=== PATIENT | female | born 1990 | race Caucasian/White ===

== ENCOUNTER 2023-02-02 12:52 | Outpatient (REF) | payer OTHER, SELFPAY ==
[2023-02-04 17:43] LABS: TS Negative Control Passed; TS Panel A 0; TS Panel B 1; TS Positive Control Passed; TSpotTB Negative (Negative)
== END 2023-02-02 12:53 | disposition home or self-care (01) ==
LOC: HO.CHCLDS 12:52
PROVIDERS: Visit Provider Internal Medicine
DX: Z11.1 Encounter for screening for respiratory tuberculosis (principal)
CPT/HCPCS: 36415; 86481

== ENCOUNTER 2024-12-20 10:10 | Outpatient (REF) | payer SELFPAY ==
--- OUTSIDE RECORDS SUMMARY | 2024-12-20 09:00 | XMS_ITS | Encounter Summary ---
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 Name Role Phone Michelle Burgess CNP Primary Care Provider [phone] Reason for Referral * Consultation (Routine) - Authorized Specialty Diagnoses / Procedures Referred By Sania sprague Referred To Contact Behavioral Health Diagnoses Anxiety Michelle Burgess CNP [address] [place] [address] Phone: tel: fax: Referral ID Status Reason Start Date Expiration Date Visits Requested Visits Authorized [id number] Authorized Specialty Services Required 12/20/2024 12/20/2025 1 1 Encounter Details Date Type Department Care Team (Late st Contact Info) Description 12/20/2024 9:00 AM EDT Office Visit [facility] [address] [place] [address] Michelle Burgess CNP [address] [place] [address] Encounter for physical examination (Primary Dx); Endometriosis; Stress incontinence of urine; Anxiety; Constipation, unspecified constipation type; Mild intermittent asthma, unspecified whether complicated; Encounter for immunization; Chronic fatigue Social History Tobacco Use Types Packs/Day Years Used Date Smoking Tobacco: Never Smokeless Tobacco: Never Depression Answer Date Recorded Patient Health Questionnaire-9 Score 6 12/20/2024 Patient Health Questionnaire-9 Score 6 12/20/2024 Last PHQ-9: Questionnaire Data Not on file 0 12/20/2024 Housing Stability Answer Date Recorded What is your housing situation today? I have iggy lee 12/13/[address] you li ve. Do you have problems with any of the following? None of the above 12/13/2024 Food Insecurity Answer Date Recorded Within the past 12 months, y ou worried that your food would run out before you got money to buy more: Sometimes True 2024 Within the past 12 months,th e food you bought just didn't last and you didn't have enough money to get more: Sometimes True 12/20/2024 Transportation Answer Date Recorded In the past 12 months, has l ack of transportation kept you from medical appts, meetings, work or from getting things needed for daily living? No 12/13/2024 Utilities Answer Date Recorded In the past 12 months, has t he electric, gas, oil or water company threatened to shut off services in your home? Yes 12/13/2024 Depression Answer Date Recorded Patient Health Questionnaire-2 Score 2 12/20/2024 Internet Access Answer Date Recorded Internet Access Q1 Yes 12/13/2024 Internet Access Q2 Not on file 12/13/2024 Comments No Intention Date Recorded No desire to become (finding) 0 12/20/2024 Sex and Gender Information Value Date Recorded Sex Assigned at Female 01/20/2022 10:31 AM EDT Legal Sex Female 10:31 AM EDT Gender Identity Female 01/20/2022 10:31 AM EDT Sexual Orientation Straight 01/20/2022 10 :31 AM EDT documented as of this encounter Last Filed Vital Signs Vital Sign Reading Time Taken Comments Blood Pressure 102/68 12/20/2024 9:08 AM EDT Pulse 80 12/20/2024 9:08 AM EDT Temperature 36.7 C (98.1 F) 12/20/2024 9:08 AM EDT Respiratory Rate 14 12/20/2024 9:08 AM EDT Oxygen Saturation 98% 12/20/2024 9:08 AM EDT Inhaled Oxygen Concentration - - Weight 73.9 kg (163 lb) 12/20/2024 9:08 AM EDT Height 160 cm (5' 3 ) 12/20/2024 9:08 AM EDT Body Mass Index 28.87 12/20/2024 9:08 AM EDT documented in this encounter Functional Status * Over the past 2 weeks, how often have you been bothered by any of the following problems? Question Answer Date of Assessment Author Patient Health Questionnaire -2 Score 2 12/20/2024 10:51 AM EDT Sa micah Perez [place] * Little interest or pleasure in doing things Answer Date of Assessment Author Several days 12/20/2024 10:51 AM EDT Julee Mcclure MA * Feeling down, depressed, or hopeless Answer Date of Assessment Author Several days 12/20/2024 10:51 AM EDT Julee Mcclure MA * Trouble falling or staying asleep, or sleeping too much Answer Date of Assessment Author Several days 12/20/2024 10:51 AM EDT Julee Mcclure MA * Feeling tired or having little energy Answer Date of Assessment Author Several days 12/20/2024 10:51 AM EDT Julee Mcclure MA * Poor appetite or overeating Answer Date of Assessment Author More than half the days 12/20/2024 10:51 AM EDT Julee Perez MA * Feeling bad about yourself - or that you are a failure or have let yourself or your family down Answer Date of Assessment Author Not at all 12/20/2024 10:51 AM EDT Julee Mcclure MA * Trouble concentrating on things, such as reading the newspaper or watching television Answer Date of Assessment Author Not at all 12/20/2024 10:51 AM EDT Julee Mcclure MA * Moving or speaking so slowly that other people could have noticed? Or the opposite - being so fidgety or restless that you have been moving around a lot more than usual. Answer Date of Assessment Author Not at all 12/20/2024 10:51 AM JOSIAHT Julee Mcclure MA * Thoughts that you would be better off or hurting yourself in some way Answer Date of Assessment Author Not at all 12/20/2024 10:51 AM JOSIAHT Julee Mcclure MA * Patient Health Questionnaire-9 Score Answer Date of Assessment Author 6 12/20/2024 10:51 AM EDT Julee Mcclure MA * How difficult have these problems made it for you to do your work, take care of things at home, or get along with other people? Answer Date of Assessment Author Somewhat difficult 12/20/2024 10:51 AM EDT Julee Hurst MA * Over the last 2 weeks, how often have you been bothered by any of the following problems? Question Answer Date of Assessment Author Feeling nervous, anxious, or on edge 1 12/20/2024 10:51 AM EDT Sa micah Perez MA Not being able to stop or control worrying 3 12/20/2024 10:51 AM EDT Sa micah Perez MA Worrying too much about different things 3 12/20/2024 10:51 AM EDT Sa micah Perez MA Trouble relaxing 3 12/20/2024 10:51 AM EDT Julee Perez MA Being so restless that it is hard to sit still 3 12/20/2024 10:51 AM EDT Sa micah Perez MA Becoming easily annoyed or irritable 3 12/20/2024 10:51 AM EDT Sa micah Perez MA Feeling afraid as if somethi ng awful might happen 3 12/20/2024 10:51 AM JOSIAHT Sa micah Perez MA ECHO-7 Total Score 19 12/20/2024 10:51 AM EDT Julee Perez MA documented as of this encounter Progress Notes * Michelle Burgess CNP - 12/20/2024 9:00 AM EDT Subjective: Paula Jorgensen is a 34 y.o. female w/ PMH endometriosis, menorrhagia, and tubo- ovarian abscess who is now s/p -[facility] who presents to the office for a transfer patient visit. Previous PCP MD Isabella. Interim history: ED eval 10/19/24 at [facility] for progressively worsening left flank pain. CT abd/pelvis demonstrated a 2mm stone in the proximal left ureter with mild left pelviectasis but no overt hydronephrosis. Multiple non-obstructing bilateral renal calculi. She was determined not to be septic or have a UTI. Offered admission to assist with pain control, but per hospital documentation, she declined admission. She was discharged with short course of Bylas 5-325mg Q6H Prn and flomax. Mar 2023: Robotic-assisted total lap hysterectomy, Bilat salpingo-oophorectomy, extensive lysis of adhesions, cystoscopy with Dr. Cornejo [address] , and primary repair of incidental anterior rectal defect, omental flap with Dr. Radha Loaiza, for Stage IV endometriosis. She uses transdermal estradiol patches. KYLER 12/02/24 reported New onset urinary incontinence, occurring with laughing, sneezing, or sudden movements; never experienced prior to hysterectomy. Feels pelvic area is weak, with sensation of incomplete bladder emptying; requires prolonged sitting to fully urinate, frequent urination in small amounts. No pelvic floor physical therapy after hysterectomy; Pt reports she has Pelvic PT appointment today. Current concerns: Daily anxiety for 2 years, described as overwhelming, with symptoms including shaking hands, lips, and body, difficulty talking, tightness in feet and hands, and intrusive thoughts; episodes described as panic attacks, especially when anxious. History of taking multiple pain medications (tramadol, Percocet) and anxiety gummies prior to surgery; currently uses gummies for anxiety but reports decreased effectiveness; no current daily anxiety medication prior to visit. - Feelings of grief and depression after surgery, especially during two months at home; currently experiences these feelings occasionally but is able to overcome them. Persistent fatigue and weakness since major pelvic surgery for endometriosis approximately 2 years ago; reports feeling desperate and unable to recover energy Decreased libido and sexual desire since surgery; fear and anxiety with intercourse due to pain andtrauma after surgery; uses lubricant as needed; reports pain and emotional distress during pelvic exams and intercourse, with shaking and tears; desire is more affected by fear than physical pain -History of COVID infection, most recently 3 weeks ago; reports persistent changes in breathing andshortness of breath since COVID, worsened with illness and exertion; uses Vicks to help breathing; unable to climb stairs easily; no current inhaler use Problem List[1] Surgical History[2] Family History[3] Social History Living situation: lives with , feels safe in relationship Employment/Education: [employer] Diet/exercise: nothing for exercise, reports inconsistent diet, often skips breakfast, eats most ofher calories at night. Substance use: denies Sexual activity: monogamous AMAB partner Contraception: [facility] Mental health: No data recorded No data recorded Patient's last menstrual period was 03/14/2023 (exact date). Allergies[4] Review of Systems see hpi Vitals: 12/20/24 0908 BP: 102/68 BP Location: Left arm Patient Position: Sitting BP Cuff Size: Adult Pulse: 80 Resp: 14 Temp: 98.1 ??F (36.7 ??C) TempSrc: Oral SpO2: 98% Weight: 163 lb (73.9 kg) Height: 5' 3 (1.6 m) Physical Exam Constitutional: Appearance: Normal appearance. She is normal weight. Cardiovascular: Rate and Rhythm: Normal rate and regular rhythm. Pulses: Normal pulses. Heart sounds: Normal heart sounds. No murmur heard. No friction rub. No gallop. Pulmonary: Effort: Pulmonary effort is normal. No respiratory distress. Breath sounds: Normal breath sounds. No wheezing or rales. Neurological: General: No focal deficit present. Mental Status: She is alert and oriented to person, place, and time. Psychiatric: Mood and Affect: Mood normal. Behavior: Behavior normal. Thought Content: Thought content normal. Judgment: Judgment normal. Assessment & Plan Encounter for physical examination 34 y/o female with stable physical exam showing no acute abnormalities 1. Anticipatory guidance discussed. Specific topics reviewed: drugs, ETOH, and tobacco, importance of regular dental care, importance of regular exercise, importance of varied diet, minimize junk food, and sex; STD and prevention as appropriate. 2. Age appropriate screenings discussed Routine Cancer Screening Breast CA: not indicated based on age Cervical CA: Colon CA: not indicated based on age Lung CA: not indicated Pt agreed to flu and PCV20 imms today, declines covid Will request vision appt Orders: Lipid Panel, Standard TSH W/Reflex to FT4 Basic Metabolic Panel CBC auto differential Vitamin D, 25-Hydroxy, Total, Immunoassay; Future Multiple Vitamin (multivitamin) tablet; Take 1 tablet by mouth Once per day. Iron And Total Iron Binding Capacity; Future Ferritin; Future Endometriosis - Recommended follow-up with the surgeon who performed prior surgery for evaluation and possible repeat imaging, specifically ultrasound, to assess for residual endometriosis and guide future management. Advised to call the surgeon???s office and request a follow-up; offered to provide a new referral if needed. - Recommended ongoing pelvic floor physical therapy to address pelvic pain, muscle tightness, and sexual dysfunction symptoms. -future consideration for progestogens and combined estrogen-progestin contraceptives, which suppress residual endometriotic tissue and are effective for pain control, these are now first line Stress incontinence of urine - Recommended ongoing pelvic floor physical therapy to address pelvic pain, muscle tightness, and sexual dysfunction symptoms. Anxiety No safety concerns today - Recommended referral to a therapist for additional mental health support and counseling. - Prescribed sertraline for anxiety, starting at 25 mg daily (half tablet) for the first week, thenincreasing to 50 mg daily (full tablet) if tolerated and no side effects. Medication to be taken inthe morning; does not require food and should not cause drowsiness. - Prescribed hydroxyzine for acute anxiety or panic attacks, to be taken initially at bedtime to assess response. May be used up to three times daily as needed for severe anxiety episodes or panic attacks. Orders: Referral to Behavioral Health; Future sertraline (Zoloft) 50 MG tablet; Take 1 tablet (50 mg) by mouth Once per day. hydrOXYzine HCl (Atarax) 25 MG tablet; Take 1 tablet (25 mg) by mouth if needed in the morning, at noon, and at bedtime for itching. Constipation, unspecified constipation type -Refilled colace - Recommended incorporating a protein shake or yogurt with fiber in the morning to improve bowel regularity and help with constipation. -advised ample hydration Orders: docusate sodium (Colace) 100 MG capsule; Take 1 capsule (100 mg) by mouth if needed each day for constipation. Mild intermittent asthma, unspecified whether complicated -Pt has history of childhood asthma that has reappeared s/p recent covid infection -pulm exam normal today -will prescribe albuterol prn for sob, wheezing with activity -future consideration for PFTs based on response to bronchodilator. Orders: albuterol (Ventolin HFA) 108 (90 Base) MCG/ACT inhaler; Inhale 2 puffs every 6 (six) hours if needed for wheezing. Encounter for immunization Orders: PCV-20 VACCINE 6 wks + FLU VACCINE TRIVALENT (Fluarix) 6 mo + Chronic fatigue - Ordered routine laboratory work to assess for nutritional deficiencies and other causes of fatigue post-surgery; blood draw to be completed today, fasting recommended. - Prescribed a daily multivitamin to support overall nutritional status; advised to review supplement contents and add biotin if not included. Current Medications[5] Immunization History Administered Date(s) Administered DTaP 1990, 1990, 1990, 06/05/1993, 04/03/1994 HPV, Quadrivalent 05/04/2007, 05/04/2007, 04/13/2008 Hep B, Adolescent or Pediatric 11/01/1997, 10/22/1998, 12/20/1999 HiB, unspecified 1990, 1990, 08/23/1991, 06/05/1993 Hib (HbOC) 1990, 1990, 08/23/1991, 06/05/1993 IPV 1990, 1990, 06/05/1993, 04/03/1994 Influenza Injectable Quadrivalant Preservative Free IIV4 MDCK 01/13/2017 Influenza injectable quadrivalent IIV4 with preservative 12/11/2017 Influenza injectable quadrivalent preservative free 01/20/2019, 02/07/2020, 01/03/2021, 12/24/2021,01/09/2023 Influenza, High Dose Seasonal, Preservative Free 12/24/2016 Influenza, IIV3, injectable 04/13/2008 Influenza, seasonal, injectable, preservative free 12/20/2024 MMR 08/23/1991, 06/05/1993 Meningococcal ACWY, unspecified 05/04/2007, 05/05/2007 Pfizer Covid-19 Vaccine 12+ 08/14/2020, 09/04/2020 Pneumococcal Conjugate PCV 20 12/20/2024 Td (adult), unspecified 02/22/2002, 05/04/2007 Tdap 05/04/2007, 05/19/2016 Varicella 02/22/2002 Follow up in about 1 month (around 01/19/2025) for mental health f/u . [1] Patient Active Problem List Diagnosis Mood disorder (CMS/HCC) Primary insomnia Menorrhagia with irregular cycle TOA (tubo-ovarian abscess) Screening-pulmonary TB Endometriosis Hospital discharge follow-up Abdominal pain Alcoholism (CMS/HCC) Allergic rhinitis Asthma Cyst of ovary Deep dyspareunia in female Dysmenorrhea Essential tremor Genital herpes Herpes simplex virus (HSV) infection Hydronephrosis Iron deficiency anemia Calculus of kidney Nephrolithiasis Postoperative state Seasonal allergies Endometrioma Depressive disorder [2] Past Surgical History: Procedure Laterality Date TOTAL ABDOMINAL HYSTERECTOMY 03/2023 ÓSCAR, VENKATESH, Dr. Cornejo at [facility] [3] No family history on file. [4] No Known Allergies [5] Current Outpatient Medications Medication Sig Dispense Refill estradiol (Climara) 0.1 MG/24HR USE 1 PATCH TOPICALLY EVERY WEEK estradiol (Vivelle-DOT) 0.1 MG/24HR Apply 1 patch topically. albuterol (Ventolin HFA) 108 (90 Base) MCG/ACT inhaler Inhale 2 puffs every 6 (six) hours if neededfor wheezing. 18 g 11 docusate sodium (Colace) 100 MG capsule Take 1 capsule (100 mg) by mouth if needed each day for constipation. 30 capsule 2 hydrOXYzine HCl (Atarax) 25 MG tablet Take 1 tablet (25 mg) by mouth if needed in the morning, at noon, and at bedtime for itching. 90 tablet 0 Multiple Vitamin (multivitamin) tablet Take 1 tablet by mouth Once per day. 30 tablet 2 sertraline (Zoloft) 50 MG tablet Take 1 tablet (50 mg) by mouth Once per day. 30 tablet 0 No current facility-administered medications for this visit. documented in this encounter Miscellaneous Notes * Assessment & Plan Note - Michelle Burgess CNP - 12/20/2024 9:00 AM EDT Associated Problem(s): Endometriosis - Recommended follow-up with the surgeon who performed prior surgery for evaluation and possible repeat imaging, specifically ultrasound, to assess for residual endometriosis and guide future management. Advised to call the surgeon???s office and request a follow-up; offered to provide a new referral if needed. - Recommended ongoing pelvic floor physical therapy to address pelvic pain, muscle tightness, and sexual dysfunction symptoms. -future consideration for progestogens and combined estrogen-progestin contraceptives, which suppress residual endometriotic tissue and are effective for pain control, these are now first line * Assessment & Plan Note - Michelle Burgess CNP - 12/20/2024 9:00 AM EDT Associated Problem(s): Asthma -Pt has history of childhood asthma that has reappeared s/p recent covid infection -pulm exam normal today -will prescribe albuterol prn for sob, wheezing with activity -future consideration for PFTs based on response to bronchodilator. Orders: albuterol (Ventolin HFA) 108 (90 Base) MCG/ACT inhaler; Inhale 2 puffs every 6 (six) hours if needed for wheezing. documented in this encounter Plan of Treatment Upcoming Encounters Date Type Department Care Team (Late st Contact Info) Description 01/19/2025 2:30 PM EDT Office Visit [facility] [address] [place] [address] Michelle Burgess CNP [address] [place] [address] 03/01/2025 8:00 AM EST Office Visit [facility] [address], [place] [id number] Vania Ruiz [address], [place] [id number] Scheduled Orders Name Type Priority Associated Diagnoses Orde r Schedule Lipid Panel, Standard Lab Routine Encounter for physical examination Ordered: 12/20/2024 TSH W/Reflex to FT4 Lab Routine Encounter for physical examination Ordered: 12/20/2024 Basic Metabolic Panel Lab Routine Encounter for physical examination Ordered: 12/20/2024 CBC auto differential Lab Routine Encounter for physical examination Ordered: 12/20/2024 Vitamin D, 25-Hydroxy, Total, Immunoassay Lab Routine Encounter for physical examination Expected: 12/20/2024 (Approximate), Expires: 12/20/2025 Iron And Total Iron Binding Capacity Lab Routine Encounter for physical examination Expected: 12/20/2024, Expires: 12/20/2025 Ferritin Lab Routine Encounter for physical examination Expected: 12/20/2024, Expires: 12/20/2025 Scheduled Referrals Name Type Priority Associated Diagnoses Order Schedule Referral to Behavioral Health Outpatient Referral Routine Anxiety Expected: 12/20/2024 (Approximate), Expires: 06/19/2026 documented as of this encounter Visit Diagnoses Diagnosis Encounter for physical examination- Primary Endometriosis Endometriosis, site unspecified Stress incontinence of urine Anxiety Anxiety state, unspecified Constipation, unspecified constipation type Mild intermittent asthma, unspecified whether complicated Encounter for immunization Chronic fatigue Other malaise and fatigue documented in this encounter Additional Health Concerns Assessment Noted Time PHQ-9 Depression Total Score: 6 12/21/19 25 10:51 AM EDT documented as of this encounter Care Teams Machine Operator Replanter Relationship Specialty Start Date End Date Michelle Burgess CNP [address] [place] [address] PCP - General Family Medicine 12/20/24 documented as of this encounter
--- OUTSIDE RECORDS SUMMARY | 2024-12-20 11:15 | XMS_ITS | Clinical Summary ---
Author Organization [facility] Address [address] [place] [address] Phone Care Team Providers Care Human Development Professor Name Role Phone Jules Ko MD Primary Care Provider [phone] Allergies No known active allergies Medications estradioL (CLIMARA) 0.1 mg/[address] 1 patch on the skin 1 (one) time per week. 09/17/2024 Active Active Problems No known active problems Encounters Date Type Department Care Team Description 10/19/2024 12:15 PM EDT - 10/19/2024 5:39 PM EDT Emergency [facility] Emergency [address] [place] [address] Fabian Coleman MD Kidney stone (Primary Dx) Discharge Disposition: Home or Self Care from Last 3 Months Surgical History Surgery Date Site/Laterality Comments OTHER SURGICAL HISTORY 2019 PROCEDURE: HISTORICAL PELVISCOPY; COMMENT: Right ovarian torsion LITHOTRIPSY PROCEDURE: HISTORICAL LITHOTRIPSY Medical History Medical History Date Comments Kidney stones DX:Kidney stones Dyspareunia in female DX:Dyspare unia in female HSV infection DX:HSV infection Other seasonal allergic rhinitis DX:Other seasonal allergic rhinitis Social History Tobacco Use Types Packs/Day Years Used Date Smoking Tobacco: Unknown Tobacco Cessation:Counseling Given: Not Answered Comments Unknown Sex and Gender Information Value Date Recorded Sex Assigned at Not on file Legal Sex Female 7:02 AM EST Gender Identity Not on file Sexual Orientation Not on file Obstetrics History Last Filed Vital Signs Vital Sign Reading Time Taken Comments Blood Pressure 112/64 10/19/2024 5:38 PM EDT Pulse 76 10/19/2024 5:38 PM EDT Temperature 36.9 C (98.4 F) 10/19/2024 5:38 PM EDT Respiratory Rate 18 10/19/2024 5:38 PM EDT Oxygen Saturation 100% 10/19/2024 5:38 PM EDT Inhaled Oxygen Concentration - - Weight 69.4 kg (153 lb) 10/19/2024 12:45 PM EDT Height 160 cm (5' 3 ) 10/19/2024 12:45 PM EDT Body Mass Index 27.1 10/19/2024 12:45 PM EDT Plan of Treatment Health Maintenance Due Date Last Done Comments HPV Vaccines (3 - 3-dose series) 07/06/2008 04/13/2008, 05/04/2007 Pneumococcal Vaccine: Pediatrics (0 to 5 Years) and At-Risk Patients (6 to 49 Years) (1 of 2 - PCV) 2009 Cervical Cancer Screening: Pap Smear 2011 HIV Screening 04/21/2023 Hepatitis C Screening 04/21/2023 Social Influencers of Health Screening 04/21/2023 Depression Screening 03/23/2024 COVID-19 Vaccine ( season) 2024 05/25/2021, 09/04/2020, 08/14/2020 Influenza Vaccine (#1) 2024 , 01/09/2023, 12/24/2021, Additional history exists DTaP,Tdap,and Td Vaccines (10 - Td or Tdap) 05/19/2026 05/19/2016, 05/04/2007, 05/04/2007, Additional history exists RSV Immunization Adult Patients (1 - 1-dose 75+ series) 2065 HIB Vaccines Completed 06/05/1993, 04/1991, 1990, Additional history exists MMR Vaccines Completed 06/05/1993, 08/23/1991 IPV Vaccines Completed 04/03/1994, 05/21, 1990, Additional history exists Hepatitis B Vaccines Completed 12/20/1999, 10/22/1998, 11/01/1997 Varicella Vaccines Aged Out 02/22/2002 No longer eligible based on patient's age to complete this topic Meningococcal ACWY Vaccine Completed 05/05/2007, Hepatitis A Vaccines Aged Out No long er eligible based on patient's age to complete this topic Meningococcal B Vaccine Aged Out No l onger eligible based on patient's age to complete this topic RSV Immunization Patients Under 20 months Aged Out No longer eligible based on patient's age to complete this topic Procedures Procedure Name Priority Date/Time Associated Diagnosis Comments CT ABDOMEN PELVIS WO CONTRAST STAT 10/19/2024 2:41 PM EDT MAHONEY URINE CULTURE TUBE STAT 10/19/2024 12:32 PM EDT URINALYSIS WITH REFLEX MICROSCOPIC AND CULTURE STAT 10/19/2024 12:32 PM EDT URINALYSIS WITH REFLEX MICROSCOPIC AND CULTURE STAT 10/19/2024 12:32 PM EDT CULTURE URINE STAT 10/19/2024 12:32 PM EDT CBC WITH AUTO DIFFERENTIAL STAT 10/19/2024 12:31 PM EDT COMPREHENSIVE METABOLIC PANEL STAT 10/19/2024 12:31 PM EDT CBC AND DIFFERENTIAL STAT 10/19/2024 12:31 PM EDT from Last 3 Months Results * CT Abdomen Pelvis wo Contrast (10/19/2024 2:41 PM EDT) Anatomical Region Laterality Modality Body Computed Tomogra phy 10/19/2024 3:28 PM EDT Impressions 10/19/2024 3:32 PM EDT 2 mm stone in the proximal left ureter with mild left pelviectasis but no overt hydronephrosis. Multiple nonobstructing bilateral renal calculi. -------- FINAL REPORT -------- Dictated By: Shar Urban Dictated Date: 10/19/2024 15:28 ET Assigned Physician: Shar Urban Reviewed and Electronically Signed By: Shar Urban Signed Date: 10/19/2024 15:32 ET Workstation ID: [id number] Transcribed By: Self Edit Transcribed Date: 10/19/2024 15:28 ET Narrative 10/19/2024 3:32 PM EDT PROCEDURE: CT Abdomen and Pelvis without contrast INDICATION: Flank pain, kidney stone suspected TECHNIQUE: CT of the abdomen and pelvis without contrast. Multiplanar reformats. The examination was performed utilizing dose reduction techniques. DLP: 656 mGy/cm COMPARISON: No priors available. FINDINGS: LOWER THORAX: Lung bases are clear. HEPATOBILIARY: No focal liver lesions. No cholelithiasis or biliary duct dilatation. SPLEEN: No splenomegaly. PANCREAS: No focal mass or ductal dilatation. ADRENALS: No nodules. KIDNEYS/URETERS: Multiple nonobstructing bilateral renal calculi. There is a small calculus in the proximal left ureter measuring 2 mm with upstream pelviectasis but no overt hydronephrosis. PELVIC ORGANS/BLADDER: Status post hysterectomy. Right ovary is also presumably surgically absent. The left ovary measures 1.9 x 2.3 cm with some adjacent inflammatory change which is presumably related to prior surgery. Ultrasound could be formed to further evaluate if desired. PERITONEUM / RETROPERITONEUM: No ascites or free air. No retroperitoneal lymphadenopathy. VESSELS: No aneurysm. GI TRACT: No bowel distention or wall thickening. Normal appendix. BONES AND SOFT TISSUES: Scattered degenerative changes seen throughout the bones. Soft tissues are unremarkable. Procedure Note Shar Urban MD - 10/19/2024 PROCEDURE: CT Abdomen and Pelvis without contrast INDICATION: Flank pain, kidney stone suspected TECHNIQUE: CT of the abdomen and pelvis without contrast. Multiplanarreformats. The examination was performed utilizing dose reductiontechniques. DLP: 656 mGy/cm COMPARISON: No priors available. FINDINGS: LOWER THORAX: Lung bases are clear. HEPATOBILIARY: No focal liver lesions. No cholelithiasis or biliary ductdilatation. SPLEEN: No splenomegaly. PANCREAS: No focal mass or ductal dilatation. ADRENALS: No nodules. KIDNEYS/URETERS: Multiple nonobstructing bilateral renal calculi. Thereis a small calculus in the proximal left ureter measuring 2 mm withupstream pelviectasis but no overt hydronephrosis. PELVIC ORGANS/BLADDER: Status post hysterectomy. Right ovary is alsopresumably surgically absent. The left ovary measures 1.9 x 2.3 cm withsome adjacent inflammatory change which is presumably related to priorsurgery. Ultrasound could be formed to further evaluate if desired. PERITONEUM / RETROPERITONEUM: No ascites or free air. No retroperitoneallymphadenopathy. VESSELS: No aneurysm. GI TRACT: No bowel distention or wall thickening. Normal appendix. BONES AND SOFT TISSUES: Scattered degenerative changes seen throughout thebones. Soft tissues are unremarkable. IMPRESSION: 2 mm stone in the proximal left ureter with mild left pelviectasis but noovert hydronephrosis. Multiple nonobstructing bilateral renal calculi. -------- FINAL REPORT -------- Dictated By: Shar Urban Dictated Date: 10/19/2024 15:28 ET Assigned Physician: Shar Urban Reviewed and Electronically Signed By: Shar Urban Signed Date: 10/19/2024 15:32 ET Workstation ID: [id number] Transcribed By: Self Edit Transcribed Date: 10/19/2024 15:28 ET Fabian Coleman MD IM CT PROCEDURES Final Result * (ABNORMAL) Urinalysis with reflex microscopic and culture (10/19/2024 12:32 PM EDT) Specific [place] Urine 1.021 1.003 - 1.030 LAB URINALYSIS - AUTOMATED METHOD 10/19/2024 12:59 PM EDT [facility] pH, Urine 7.5 5.0 - 8.0 pH LAB URINALYSIS - AUTOMATED METHOD 10/19/2024 12:59 PM T [facility] Leukocytes, Urine Trace(A) Negative LAB URINALYSIS - AUTOMATED METHOD 10/19/2024 12:59 PM [facility] Nitrite, Urine Negative Negative LAB URINALYSIS - AUTOMATED METHOD 10/19/2024 12:59 PM [facility] Protein, Urine 30(A) <=Trace mg/dL LAB URINALYSIS - AUTOMATED METHOD 10/19/2024 12:59 PM [facility] Glucose, Urine Negative Negative mg/dL LAB URINALYSIS - AUTOMATED METHOD 10/19/2024 12:59 PM EDT [facility] Ketones, Urine Trace(A) Negative mg/dL LAB URINALYSIS - AUTOMATED METHOD 10/19/2024 12:59 PM EDT [facility] Urobilinogen , Urine 1.0 0.2 - 1.0 mg/dL LAB URINALYSIS - AUTOMATED METHOD 10/19/2024 12:59 PM EDT [facility] Bilirubin, Urine Negative Negative LAB URINALYSIS - AUTOMATED METHOD 10/19/2024 12:59 PM EDT [facility] Blood, Urine Large(A) Negative LAB URINALYSIS - AUTOMATED METHOD 10/19/2024 12:59 PM [facility] RBC, Urine 1,619.3(H) 0 - 4 /HPF LAB URINALYSIS - AUTOMATED METHOD 10/19/2024 12:59 PM [facility] WBC, Urine 5.1(H) 0 - 4 /HPF LAB URINALYSIS - AUTOMATED METHOD 10/19/2024 12:59 PM EDT [facility] Squamous Epithelial, Urine 18 0 - 60 /LPF LAB URINALYSIS - AUTOMATED METHOD 10/19/2024 12:59 PM [facility] Bacteria, Urine Negative Negative /HPF LAB URINALYSIS - AUTOMATED METHOD 10/19/2024 12:59 PM [facility] Hyaline Casts, Urine 2.2 0 - 3 /LPF LAB URINALYSIS - AUTOMATED METHOD 10/19/2024 12:59 PM [facility] Urine Urine specimen obtained by clean catch procedure / Unknown Non-blood Collection / Unknown 10/19/2024 12:32 PM EDT 10/19/2024 12:43 PM EDT us Enrique Clemens MD LAB URINE ORDERABLES Final Resul t [facility] [address] [place] [address], [place] [phone] * [place] urine culture tube (10/19/2024 12:32 PM EDT) Pathologist [facility] Extra Tube Hold for add-ons. 10/19/2024 2:01 PM EDT [facility] Comment:Auto resulted. Urine Urine specimen obtained by clean catch procedure / Unknown Non-blood Collection / Unknown 10/19/2024 12:32 PM EDT 10/19/2024 12:43 PM EDT us Enrique Clemens MD LAB URINE ORDERABLES Final Resul t [facility] [address] [place] [address], [place] [phone] * Culture urine (10/19/2024 12:32 PM EDT) [facility] Culture, Urine No growth 10/20/2024 11:23 AM EDT [facility] Urine Urine specimen obtained by clean catch procedure / Unknown Non-blood Collection / Unknown 10/19/2024 12:32 PM EDT 10/19/2024 12:59 PM EDT us Enrique Clemens MD LAB MICROBIOLOGY - GENERAL ORDER MALDONADO Final Result [facility] [address] [place] [address], [place] [phone] * (ABNORMAL) CBC auto differential (10/19/2024 12:31 PM EDT) WBC 10.6 4.8 - 10.8 K/[facility] LAB HEMETOLOGY METHOD 10/19/2024 12:50 PM EDT [facility] RBC 4.80 3.80 - 4.80 M/[facility] LAB HEMETOLOGY METHOD 10/19/2024 12:50 PM EDT [facility] Hemoglobin 12.7 11.5 - 16.0 g/dL LAB HEMETOLOGY METHOD 10/19/2024 12:50 PM EDT [facility] Hematocrit 39.1 35.0 - 47.0 % LAB HEMETOLOGY METHOD 10/19/2024 12:50 PM EDT [facility] MCV 81.1 79.0 - 98.0 FL LAB HEMETOLOGY METHOD 10/19/2024 12:50 PM EDT [facility] MCH 26.3(L) 27.0 - 32.0 pcg LAB HEMETOLOGY METHOD 10/19/2024 12:50 PM EDT [facility] MCHC 32.5 32.0 - 37.0 g/dL LAB HEMETOLOGY METHOD 10/19/2024 12:50 PM EDT [facility] RDW 13.3 11.0 - 15.0 % LAB HEMETOLOGY METHOD 10/19/2024 12:50 PM EDT [facility] Platelets 300 130 - 400 K/mcL LAB HEMETOLOGY METHOD 10/19/2024 12:50 PM EDT [facility] MPV 10.3 7.0 - 11.0 FL LAB HEMETOLOGY METHOD 10/19/2024 12:50 PM EDT [facility] NRBC 0.0 <1.0 % LAB HEMETOLOGY METHOD 10/19/2024 12:50 PM EDT [facility] NRBC Absolute 0.00 <0.10 K/mcL LAB HEMETOLOGY METHOD 10/19/2024 12:50 PM EDT [facility] Neutrophils Relative 69.7 % LAB HEMETOLOGY METHOD 10/19/2024 12:50 PM EDT [facility] Lymphocytes Relative 21.1 % LAB HEMETOLOGY METHOD 10/19/2024 12:50 PM EDT [facility] Monocytes Relative 6.6 % LAB HEMETOLOGY METHOD 10/19/2024 12:50 PM EDT [facility] Eosinophils Relative 1.9 % LAB HEMETOLOGY METHOD 10/19/2024 12:50 PM EDT [facility] Basophils Relative 0.4 % LAB HEMETOLOGY METHOD 10/19/2024 12:50 PM EDT [facility] Immature Granulocytes Relative 0.3 % LAB HEMETOLOGY METHOD 10/19/2024 12:50 PM EDT [facility] Neutrophils Absolute 7.35(H) 1.50 - 7.00 K/mcL LAB HEMETOLOGY METHOD 10/19/2024 12:50 PM EDT [facility] Lymphocytes Absolute 2.23 1.00 - 5.00 K/mcL LAB HEMETOLOGY METHOD 10/19/2024 12:50 PM EDT [facility] Monocytes Absolute 0.70 0.20 - 1.00 K/mcL LAB HEMETOLOGY METHOD 10/19/2024 12:50 PM EDT [facility] Eosinophils Absolute 0.20 0.00 - 0.50 K/mcL LAB HEMETOLOGY METHOD 10/19/2024 12:50 PM EDT [facility] Basophils Absolute 0.04 0.00 - 0.20 K/mcL LAB HEMETOLOGY METHOD 10/19/2024 12:50 PM EDT [facility] Immature Granulocytes Absolute 0.03 0.00 - 0.03 K/mcL LAB HEMETOLOGY METHOD 10/19/2024 12:50 PM EDT [facility] Blood Venous blood specimen / Unknown Venipuncture / Unknown 10/19/2024 12:31 PM EDT 10/19/2024 12:43 PM EDT us Enrique Clemens MD LAB BLOOD ORDERABLES Final Resul t [facility] [address] [place] [address], * (ABNORMAL) Comprehensive metabolic panel (10/19/2024 12:31 PM EDT) [facility] Signature Sodium 138 133 - 145 mmol/L LAB CHEMISTRY METHOD 10/19/2024 1:17 PM [facility] Potassium 3.4(L) 3.5 - 5.5 mmol/L LAB CHEMISTRY METHOD 10/19/2024 1:17 PM [facility] Chloride 108 96 - 110 mmol/L LAB CHEMISTRY METHOD 10/19/2024 1:17 PM [facility] CO2 23 21 - 32 mmol/L LAB CHEMISTRY METHOD 10/19/2024 1:17 PM [facility] Anion Gap 7 3 - 11 LAB CHEMISTRY METHOD 10/19/2024 1:17 PM [facility] Glucose 96 70 - 100 mg/dL LAB CHEMISTRY METHOD 10/19/2024 1:17 PM [facility] BUN 12 5 - 25 mg/dL LAB CHEMISTRY METHOD 10/19/2024 1:17 PM [facility] Creatinine 0.66 0.50 - 1.10 mg/dL LAB CHEMISTRY METHOD 10/19/2024 1:17 PM [facility] eGFR 118 >=60 mL/min/1. 73m2 LAB CHEMISTRY METHOD 10/19/2024 1:17 PM [facility] Comment:Calculation based on the Chronic Kidney Disease Epidemiology Collaboration (CKD-EPI) equation refit without adjustment for race. BUN/Creatinine Ratio 18.2 LAB CHEMISTRY METHOD 10/19/2024 1:17 PM [facility] Calcium 9.4 8.5 - 10.5 mg/dL LAB CHEMISTRY METHOD 10/19/2024 1:17 PM [facility] AST (SGOT) 12 10 - 42 unit/L LAB CHEMISTRY METHOD 10/19/2024 1:17 PM [facility] ALT (SGPT) 16 10 - 60 unit/L LAB CHEMISTRY METHOD 10/19/2024 1:17 PM EDT [facility] Alkaline Phosphatase 109 42 - 121 unit/L LAB CHEMISTRY METHOD 10/19/2024 1:17 PM EDT [facility] Total Protein 7.1 6.0 - 8.0 g/dL LAB CHEMISTRY METHOD 10/19/2024 1:17 PM EDT [facility] Albumin 4.0 3.2 - 5.0 g/dL LAB CHEMISTRY METHOD 10/19/2024 1:17 PM EDT [facility] Total Bilirubin 0.7 0.0 - 1.4 mg/dL LAB CHEMISTRY METHOD 10/19/2024 1:17 PM EDT [facility] Blood Venous blood specimen / Unknown Venipuncture / Unknown 10/19/2024 12:31 PM EDT 10/19/2024 12:43 PM EDT us Enrique Clemens MD LAB BLOOD ORDERABLES Final Resul t [facility] [address] [place] [address], [place] [phone] from Last 3 Months Insurance MEDICAID - [place] Care Teams Human Development Professor Relationship Specialty Start Date End Date Jules Ko MD [address] [place] [address] PCP - General 03/13/15
--- OUTSIDE RECORDS SUMMARY | 2024-12-20 11:15 | XMS_ITS | Encounter Summary ---
Author Organization [employer] Address [address] [place] [address] Care Team Providers Care Employment Specialist Name Role Phone BurgessMichelle LESTER Primary Care Provider [phone] Encounter Details Date Type Department Care Team (Latest Contact Info) Description 12/20/2024 Travel Social History Tobacco Use Types Packs/Day Years [...] Q2 Not on file 12/13/2024 Comments No Sex and Gender Information Value Date Recorded Sex Assigned at Female 01/20/2022 10:31 AM EDT Legal Sex Female 10:31 AM EDT Gender Identity Female 01/20/2022 10:31 AM EDT Sexual Orientation Straight 01/20/2022 10 :31 AM EDT documented as of this encounter Functional Status * Over the [...] than half the days 12/20/2024 10:51 AM JOSIAHT Julee Perez [place] * Feeling bad about [...] 10:51 AM EDT Julee Mcclure [place] * Thoughts that you [...] or on edge 1 12/20/2024 10:51 AM Sa micah Powell [place] Not being able to stop or control worrying 3 12/20/2024 10:51 AM Sa micah Powell [place] Worrying too much about different things 3 12/20/2024 10:51 AM Sa micah Powell [place] Trouble relaxing 3 12/20/2024 10:51 AM Julee Powell [place] Being so restless that it is hard to sit still 3 12/20/2024 10:51 AM Sa micah Powell [place] Becoming easily annoyed or irritable 3 12/20/2024 10:51 AM Sa micah Powell [place] Feeling afraid as if somethi ng awful might happen 3 12/20/2024 10:51 AM Sa micah Powell MA ECHO-7 Total Score 19 12/20/2024 10:51 AM Julee Powell [place] documented as of this encounter Plan of Treatment Upcoming Encounters Date Type Department Care Team (Late st Contact Info) Description 01/19/2025 2:30 PM EDT Office Visit [facility] MED & PEDS [address] [place] [address] Michelle Burgess, [employer]ER [address] [place] [address] 03/01/2025 8:00 AM EST Office Visit [facility] [address] [place], [place] [phone] Vania Ruiz [address] [place], [place] [phone] documented as of this encounter Visit Diagnoses Not on filedocumented in this encounter Additional Health Concerns Assessment Noted Time PHQ-9 Depression Total Score: 6 12/21/19 25 10:51 AM EDT documented as of this encounter Care Teams Employment Specialist Relationship Specialty Start Date End Date Michelle Burgess CNP [address] [facility] [place] [address] PCP - General Family Medicine 12/20/24 documented as of this encounter
--- OUTSIDE RECORDS SUMMARY | 2024-12-20 11:15 | XMS_ITS | Encounter Summary ---
Author Organization [employer] Address [address] [place] [address] [address] [address] Care Team Providers Care Motor Carrier Inspector Name Role Phone Ben Colby MD Primary Care Prov ider Michelle Burgess CNP Primary Care Provider [phone] Reason for Visit * Reason Onset Date Comments Appointment Request 09/01/2022 Encounter Details Date Type Department Care Team ([facility] st Contact Info) Description 09/01/2022 Telephone [facility] MED & PEDS [address] [place], [place] [phone] Ben Colby MD [address] [place], [place] [phone] Appointment Request Social History Tobacco Use Types Packs/Day Years Used Date Smoking Tobacco: Never Assessed Depression Answer Date Recorded Patient Health Questionnaire-9 Score 6 06/10/2022 Depression Answer Date Recorded Patient Health Questionnaire-2 Score 1 06/10/2022 Comments Unknown Sex and Gender Information Value Date Recorded Sex Assigned at Female 01/20/2022 10:31 AM EDT Legal Sex Female 10:31 AM EDT Gender Identity Female 01/20/2022 10:31 AM EDT Sexual Orientation Straight 01/20/2022 10 :31 AM EDT documented as of this encounter Miscellaneous Notes * Telephone Encounter - Nya Callejas - 09/09/2022 9:50 AM EDT TC from returning call regarding last message . * Telephone Encounter - Jenniffer Hoover - 09/01/2022 2:13 PM EDT Tc from patient calling to r/s PAP SMEAR/PELVIC EXAM appt from 09/16/22. Details: PAP documented in this encounter Plan of Treatment Upcoming Encounters Date Type Department Care Team (Late st Contact Info) Description 01/19/2025 2:30 PM EDT Office Visit [facility] MED & PEDS [address] [place] [address] Michelle Burgess CNP [address] [place], [place] [phone] 03/01/2025 8:00 AM EST Office Visit [facility] [address] [place], [place] [phone] Vania Ruiz [address] [place], [place] [phone] documented as of this encounter Visit Diagnoses Not on filedocumented in this encounter Additional Health Concerns Assessment Noted Time PHQ-9 Depression Total Score: 6 06/11/19 23 4:39 PM EDT documented as of this encounter Care Teams Motor Carrier Inspector Relationship Specialty Start Date End Date Ben Colby MD [address] [place] [address] PCP - General Internal Medicine 08/16/19 12/19/24 Michelle Burgess CNP [address] [place] [address] PCP - General Family Medicine 12/20/24 documented as of this encounter
--- OUTSIDE RECORDS SUMMARY | 2024-12-20 11:15 | XMS_ITS | Encounter Summary ---
Author Organization [employer] [facility] Address [address] [place] [address] [address] [place] [address] Care Team Providers Care Residency Director Name Role Phone Ben Colby MD Primary Care Prov ider Michelle Burgess CNP Primary Care Provider [phone] Encounter Details Date Type Department Care Team (Late Contact Info) Description 11/18/2022 Orders Only [facility] MED & PEDS [address] [place] [address] Ben Colby MD [address] [place] [address] Social History Tobacco Use Types Packs/Day Years Used Date Smoking Tobacco: Never Smokeless Tobacco: Never Depression Answer Date Recorded Patient Health Questionnaire-9 Score 6 06/10/2022 Depression Answer Date Recorded Patient Health Questionnaire-2 Score 1 06/10/2022 Comments No Sex and Gender Information Value Date Recorded Sex Assigned at Female 01/20/2022 10:31 AM EDT Legal Sex Female 10:31 AM EDT Gender Identity Female 01/20/2022 10:31 AM EDT Sexual Orientation Straight 01/20/2022 10 :31 AM EDT documented as of this encounter Plan of Treatment Upcoming Encounters Date Type Department Care Team (Late st Contact Info) Description 01/19/2025 2:30 PM EDT Office Visit [facility] MED & PEDS [address] [place] [address] Michelle Burgess CNP [address] [place] [address] 03/01/2025 8:00 AM EST Office Visit [facility] [address] [place], [place] [phone] Vania Ruiz [address] [place], [place] [phone] documented as of this encounter Visit Diagnoses Not on filedocumented in this encounter Additional Health Concerns Assessment Noted Time PHQ-9 Depression Total Score: 6 06/11/19 23 4:39 PM EDT documented as of this encounter Care Teams Residency Director Relationship Specialty Start Date End Date Ben Colby MD [address] [place] [address] PCP - General Internal Medicine 08/16/19 12/19/24 Michelle Burgess CNP [address] [place] [address] PCP - General Family Medicine 12/20/24 documented as of this encounter
--- OUTSIDE RECORDS SUMMARY | 2024-12-20 11:15 | XMS_ITS | Encounter Summary ---
Author Organization [employer] Address [address] 7 [place] [address] Care Team Providers Care Director Strategic Account Management Name Role Phone Ben Colby MD Primary Care Prov ider Reason for Visit * Reason Onset Date Comments chart prep 12/19/2024 Encounter Details Date Type Department Care Team ([facility] st Contact Info) Description 12/19/2024 Telephone [facility] & PEDS [address] [place], [place] [phone] Ben Colby MD [address] [place] [address] chart prep Social History Tobacco Use Types Packs/Day Years [...] encounter Miscellaneous Notes * Telephone Encounter - Julee Perez [place] - 12/19/2024 9:43 AM EDT Chart Prep Labs: not applicable Images: not applicable Referrals: not applicable Vaccines due: Covid, Flu, PCV20, and HPV Screenings: STI screening and LMP Overdue care gaps: SBIRT, PHQ-9, ECHO-7, and Disability screen documented in this encounter Plan of Treatment Upcoming Encounters Date Type Department Care Team (Late st Contact Info) Description 01/19/2025 2:30 PM EDT Office Visit [facility] PEDS [address] [place] [address] Michelle Burgess, VICE PROVOST 505 [place] [address] 03/01/2025 8:00 AM EST Office Visit [facility] [address] [place], [place] [phone] Vania Ruiz [address] [place], [place] [phone] documented as of this encounter Visit Diagnoses Not on filedocumented in this encounter Additional Health Concerns Assessment Noted Time PHQ-9 Depression Total Score: 6 06/11/19 23 4:39 PM EDT documented as of this encounter Care Teams Director Strategic Account Management Relationship Specialty Start Date End Date Ben Colby MD [address] [place] [phone] PCP - General Internal Medicine 08/16/19 12/19/24 documented as of this encounter
--- OUTSIDE RECORDS SUMMARY | 2024-12-20 11:15 | XMS_ITS | Clinical Summary ---
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 024 Active docusate sodium (Colace) 100 MG capsuleIndication s:Constipation, unspecified constipation type Take 1 capsule (100 mg) by mouth if needed each day for constipation. 30 capsule 2 Active Multiple Vitamin (multivitamin) tabletIndications :Encounter for physical examination Take 1 tablet by mouth Once per day. 30 tablet 2 Active sertraline (Zoloft) 50 MG tabletIndications :Anxiety Take 1 tablet (50 mg) by mouth Once per day. 30 tablet 025 2024 Active hydrOXYzine HCl (Atarax) 25 MG tabletIndications :Anxiety Take 1 tablet (25 mg) by mouth if needed in the morning, at noon, and at bedtime for itching. 90 tablet 025 2024 Active albuterol (Ventolin HFA) 108 (90 Base) MCG/ACT inhalerIndication s:Mild intermittent asthma, unspecified whether complicated Inhale 2 puffs every 6 (six) hours if needed for wheezing. 18 g 11 025 2025 Active ondansetron ODT (Zofran-ODT) 4 MG disintegrating tablet DISSOLVE 1 TABLET BY MOUTH TWICE DAILY 30 MINUTES BEFORE ANTIBIOTIC NEEDED FOR FOR NAUSEA AND VOMITING 2024 Discontinued valACYclovir (Valtrex) 500 MG tablet TAKE ONE TABLET TWICE DAILY FOR THREE DAYS THEN TAKE ONE TABLET DAILY ongoing 36 tablet 11 2024 Discontinued Acetaminophen Extra Strength 500 MG tablet TAKE TWO TABLETS EVERY 6 HOURS NEEDED FOR PAIN 2024 Discontinued HYDROmorphone (Dilaudid) 2 MG tablet TAKE ONE TABLET EVERY 8 HOURS NEEDED FOR PAIN 2024 Discontinued(T herapy completed) Simpesse 0.15-0.03 &0.01 MG tablet tablet Take 1 tablet by mouth Once daily. 2024 Discontinued(T herapy completed) naloxone (Narcan) 4 mg/0.1 mL nasal spray FOR SUSPECTED OPIOID OVERDOSE. SPRAY 0.1mL IN ONE NOSTRIL. REPEAT IN ALTERNATE NOSTRIL EVERY 2-3 MINUTES IF NEEDED. SEEK MEDICAL ATTENTION IMMEDIATELY EVEN IF PT RESPONDS. 2024 Discontinued traZODone (Desyrel) 50 MG tablet 50 mg, 1, tablet, By Mouth, Daily at bedtime, # 15 tablet, Refills 0, Maintenance, 04/01/23 12:36:00 EST, Partial fill upon patient request if the prescription is for a schedule II opioid drug. 15 tablet 2024 Discontinued estradiol (Estrace) 2 MG tablet Take 2 mg by mouth. 2024 Discontinued acetaminophen (Tylenol Extra Strength) 500 MG tablet Take 1,000 mg by mouth. 2024 Discontinued simethicone (Mylicon) 80 MG chewable tablet Chew 80 mg. 2024 Discontinued ibuprofen 800 MG tablet Take 1 tablet by mouth. 2024 Discontinued docusate sodium (Colace) 100 MG capsule Take 100 mg by mouth. 2024 Discontinued(R eorder (will not trigger notification to Pharmacy)) diphenhydrAMINE (Benadryl Allergy) 25 MG tablet Take 50 mg by mouth. 024 2024 Discontinued polyethylene glycol, PEG, 3350 (MiraLax) 17 GM/SCOOP powder Take 17 g by mouth. 024 2024 Discontinued Active Problems Problem Noted Date Diagnosed Date Asthma 12/19/2024 Assessment & Plan (12/20/2024 10:34 AM EDT): -Pt has history of childhood asthma that has reappeared s/p recent covid infection -pulm exam normal today -will prescribe albuterol prn for sob, wheezing with activity -future consideration for PFTs based on response to bronchodilator. Orders: albuterol (Ventolin HFA) 108 (90 Base) MCG/ACT inhaler; Inhale 2 puffs every 6 (six) hours if needed for wheezing. Cyst of ovary 12/19/2024 Essential tremor 12/19/2024 Herpes simplex virus (HSV) infection 12/19/2024 Iron deficiency anemia 12/19/2024 Endometrioma 12/19/2024 Depressive disorder 12/19/2024 Postoperative state 04/09/2023 Endometriosis 03/30/2023 03/30/2023 Assessment & Plan (12/20/2024 10:34 AM EDT): - Recommended follow-up with the surgeon who performed prior surgery for evaluation and possible repeat imaging, specifically ultrasound, to assess for residual endometriosis and guide future management. Advised to call the surgeon s office and request a follow-up; offered to provide a new referral if needed. - Recommended ongoing pelvic floor physical therapy to address pelvic pain, muscle tightness, and sexual dysfunction symptoms. -future consideration for progestogens and combined estrogen-progestin contraceptives, which suppress residual endometriotic tissue and are effective for pain control, these are now first line Hospital discharge follow-up 03/30/2023 Assessment & Plan (03/30/2023 9:39 AM EST): Patient was seen at [facility] from 03-17 to 03-18 after presenting with uncotrolled pain, patient has been on ketorolac/hydrmorphone/ibuprofen with minimal improvement, she is now using cannabis with moderate improvement, her surgery is scheduled for 04/08/23. Screening-pulmonary TB 01/26/2023 Assessment & Plan (01/26/2023 9:54 AM EST): -request TB testing Nephrolithiasis 11/22/2022 TOA (tubo-ovarian abscess) 11/21/202201/26 Assessment & Plan (01/26/2023 9:54 AM EST): -still present despite IV and oral abx treatment -Had ultrasound last 01/19/23, results not available in EPIC. OB appointment on 01/28/23 -increase fluids as tolerated, continue pain medication as prescribed. 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, no suicidal/homicidal ideas, her greatest concern is insomnia Hydronephrosis 12/11/2017 Seasonal allergies 12/11/2017 Calculus of kidney 05/19/2008 Overview (12/19/2024): seen in [facility] ER Allergic rhinitis 04/14/2008 Dysmenorrhea 04/14/2008 Encounters Date Type Department Care Team Description 12/20/2024 9:00 AM EDT Office Visit [facility] [address] [place] [address] Michelle Burgess CNP Encounter for physical examination (Primary Dx); Endometriosis; Stress incontinence of urine; Anxiety; Constipation, unspecified constipation type; Mild intermittent asthma, unspecified whether complicated; Encounter for immunization; Chronic fatigue 12/20/2024 Travel 12/19/2024 Telephone [facility] [address] [place] [address] Ben Colby MD chart prep 12/13/2024 Patient Outreach [address] [address] Ben Colby MD Care Coordination (CH[facility] outreach for SDOH housing search-referral completed ) 12/13/2024 Patient Outreach [facility] [address] [place] [phone] Ben Colby MD Pre-visit Planning (SDOH screening positive and Tobacco screening negative) 12/02/2024 9:15 AM EDT Office Visit [facility] [address] [place] [address] Millicent Pablo FNP Stress incontinence of urine (Primary Dx); S/P hysterectomy; Constipation, unspecified constipation type; Hot flashes 12/02/2024 Travel 12/01/2024 Telephone [facility] [address] [place] [address] Ben Colby MD Appointment Request 12/01/2024 Telephone [facility] [address] [place] [address] Ben Colby MD Change PCP from Last 3 Months Immunizations Immunization Administration Dates Next Due DTaP 04/03/1994, 4,1990,07/12,1990 HPV, Quadrivalent 04/13/2008,05/04/2007,02/12/20 08 Hep B, Adolescent or Pediatric 12/20/1999,1998,11/01/1997 HiB, unspecified 06/05/1993, 2,1990,09/13 Hib (HbOC) 06/05/1993, 2,1990,09/13 IPV 04/03/1994, 4,1990,05/14 Influenza Injectable Quadriv alant Preservative Free IIV4 MDCK 01/13/2017 Influenza injectable quadriv alent IIV4 with preservative 12/11/2017 Influenza injectable quadriv alent preservative free 01/09/2023,12/24/2021,01/03/2021,02/06,01/20/2019 Influenza, High Dose Seasona l, Preservative Free 12/24/2016 Influenza, IIV3, injectable 04/13/2008 Influenza, seasonal, injecta ble, preservative free 12/20/2024 MMR 06/05/1993,08/23/1991 Meningococcal ACWY, unspecified 05/05/2007,05/04 Pfizer Covid-19 Vaccine 12+ 09/04/2020, Pneumococcal Conjugate PCV 20 12/20/2024 Td (adult), unspecified 05/04/2007,02/22/2002 Tdap 05/19/2016,05/04/2007 Varicella 02/22/2002 Social History Tobacco Use Types Packs/Day Years [...] Orientation Straight 01/20/2022 10 :31 AM EDT Last Filed Vital Signs Vital Sign Reading [...] Mass Index 28.87 12/20/2024 9:08 AM EDT Plan of Treatment Upcoming Encounters Date Type Department Care Team (Late st Contact Info) Description 01/19/2025 2:30 PM EDT Office Visit [facility] [address] [place] [address] Michelle Burgess, LESTER [address] [place] [address] 03/01/2025 8:00 AM EST Office Visit [facility] [address] [place] [address] Sara, Vania [address] [place], [place] [phone] Health Maintenance Due Date Last Done Comments HIV Screening 1990 Tobacco Screening 12/04/2025 12/04/2024 Alcohol/Substance Use Screening 12/20/2025 12/20/2024 COVID-19 Vaccine ( season) 2025 09/04/2020, 08/14/2020 Postponed from 11/21/2024 (Patient Refused) Depression Screening 12/20/2025 12/20/2024, 12/21/19 Disability Screening 12/20/2025 12/20/2024 Family Planning (PISQ) 12/20/2025 12/20/2024 HPV Vaccines (3 - 3-dose series) 12/20/2025 04/13/2008, 05/04/2007, 05/04/2007 Postponed from 07/06/2008 (Patient Refused) SDOH Screening 12/20/2025 12/20/2024 DTaP/Tdap/Td Vaccines (8 - Td or Tdap) 05/19/2026 05/19/2016, 05/04/2007, 05/04/2007, Additional history exists Zoster Vaccines (1 of 2) 02/29/2040 RSV Patients and Patients Aged 60 years or older (1 - 1-dose 75+ series) 2065 HIB Vaccines Completed 06/05/1993, 05/21, 08/23/1991, Additional history exists IPV Vaccines Completed 04/03/1994, 05/21, 1990, Additional history exists Hepatitis B Vaccines Completed 12/20/1999, 10/22/1998, 11/01/1997 Meningococcal Vaccine Completed 05/05/2007, 008 Hepatitis C Screening Completed 09/01/2022 Cervical Cancer Screening Discontinued HPV/Cotest Discontinued 09/15/2022 Pap Smear Discontinued 09/15/2022 Influenza Vaccine Completed 12/20/2024, , 12/24/2021, Additional history exists Pneumococcal Vaccine: Pediatrics (0 to 5 Years) and At-Risk Patients (6 to 49) Years Completed 12/20/2024 Hepatitis A Vaccines Aged Out No long er eligible based on patient's age to complete this topic Meningococcal B Vaccine Aged Out No l onger eligible based on patient's age to complete this topic RSV under 20 months Aged Out No longe r eligible based on patient's age to complete this topic Rotavirus Vaccines Aged Out No longer eligible based on patient's age to complete this topic Procedures Procedure Name Priority Date/Time Associated Diagnosis Comments POCT URINALYSIS DIPSTICK Routine 12/02/2024 9:34 AM EDT Stress incontinence of urine IMAGE-GUIDED PAP W/AGE BASED SCR,W/CT/NG/TRICH Routine 09/15/2022 1:39 PM EDT Cervical cancer screening HEPATITIS PANEL, GENERAL Routine 09/01/2022 10:02 AM EDT Anxiety Shaking Alcohol abuse, in remission from Last 3 Months or Most Recently Relevant to Health Maintenance Results * POCT Urinalysis (12/02/2024 9:34 AM EDT) Color, UA Yellow Clarity, UA Clear Glucose, UA Negative Bilirubin, UA Negative Ketones, UA Negative Spec Grav, UA 1.025 Blood, UA Negative Negative, None Detected pH, UA 5.5 Protein, UA Negative Urobilinogen, UA 0.2 Leukocytes, UA Negative Negative, Rare, Trace Nitrite, UA Negative Negative, None Detected Appearance, UA clear QC Media Lot # [id number] Lot# Expiration Date [id number] Urine 12/02/2024 9:34 AM EDT Millicent Pablo CATH LAB RADIOLOGY TECHNICIAN POINT OF CARE TEST ENTER/EDIT ORDERABLES Final Result * Image-Guided Pap with Age-Based Screening??with CT/NG,??Trichomonas (09/15/2022 1:39 PM EDT) Comment [employer] Comment: This order for age-based cervical cancer and STI screening follows ACOG guidelines(PB 168, 140, SXE975). See individual assays for performing site location. Clinical Information: Routine exam [facility] [place] [facility] LMP: 09/07/22 [employer] [place] [facility] Prev. PAP: NONE GIVEN [employer] [place] [facility] Prev. BX: NONE GIVEN [employer] [place] [facility] SOURCE: None given [employer] [place] [employer] [facility] Statement Of Adequacy: [employer] [place] [facility] Comment: Satisfactory for evaluation. Endocervical/transformation zone component present. Interpretation/Re sult: Negative for intraepithelial lesion or malignancy. [employer] [place] [facility] COMMENT: This Pap test has been evaluated with computer assisted technology. [employer] [place] [facility] Line Leader: [facility] [employer] [place] [facility] Comment: SL, CT(ASCP) CT screening location: [place] [address] (Always Message) [facility] [employer] [place] [facility] Comment: EXPLANATORY NOTE: The Pap is a screening test for cervical cancer. It is not a diagnostic test and is subject to false negative and false positive results. It is most reliable when a satisfactory sample, regularly obtained, is submitted with relevant clinical findings and history, and when the Pap result is evaluated along with historic and current clinical information. HPV nRNA E6/E7 Not Detected Not Detected [employer] Comment: Methodology: Director Of Volunteer Services-Mediated Amplification This assay detects E6/E7 viral messenger RNA (mRNA) from 14 high-risk HPV types (16,18,31,33,35,39,45,51,52,56,58,59,66,68). Cervical sources are required for HPV testing. If a vaginal source from a patient who has had a total hysterectomy with removal of cervix was submitted, please contact the testing laboratory for alternative testing options. For additional information, please refer to http://education.Fantoo/faq/WWW053h9 (This link if provided for information/ educational purposes only.) Chlamydia trachomatis RNA, TMA, Urogenital NOT DETECTED NOT DETECTED [employer] Neisseria gonorrhoeae RNA, TMA, Urogenital NOT DETECTED NOT DETECTED [employer] (Always Message) [employer] Comment: The analytical performance characteristics of this assay, when used to test SurePath(TM) specimens have been determined by [employer]. The modifications have not been cleared or approved by the FDA. This assay has been validated pursuant to the CLIA regulations and is used for clinical purposes. For additional information, please refer to https://Shopcade.Fantoo/faq/NRW571 (This link is being provided for information/ educational purposes only.) Trichomonas vaginalis, QL, TMA, PAP Vial NOT DETECTED NOT DETECTED [employer] Comment: The analytical performance characteristics of this assay have been determined by [employer]. The modifications have not been cleared or approved by the FDA. This assay has been validated pursuant to the CLIA regulations and is used for clinical purposes. For additional information, please refer to http://Shopcade.Fantoo/ faq/Trichomonastma (This link is being provided for information/ educational purposes only.) Pap Vial 09/15/2022 1:39 PM EDT 09/16/2022 5:33 AM EDT Jazmine Bahena [facility] CYTOLOGY ORDERABLES F inal Result [facility] [address], [place] [address] [employer] [place] [facility] [address] [place] [address] * (ABNORMAL) Hepatitis Panel, General (09/01/2022 10:02 AM EDT) Hepatitis A Antibody Total NON-REACT DIANA NON-REACT DIANA [employer] [place] [facility] Comment: For additional information, please refer to http://Shopcade.Fantoo/faq/MAT235 (This link is being provided for informational/ educational purposes only.) Hepatitis B Surface Antibody QL REACTIVE( A) NON-REACT DIANA [employer] Hepatitis B Surface Ag NON-REACT DIANA NON-REACT DIANA [employer] [place] [facility] Hepatitis B Core Antibody Total NON-REACT DIANA NON-REACT DIANA [employer] [place] [facility] Hepatitis C Antibody NON-REACT DIANA NON-REACT DIANA [employer] Index 0.03 <1.00 [employer] Comment: HCV antibody was non-reactive. There is no laboratory evidence of HCV infection. In most cases, no further action is required. However, if recent HCV exposure is suspected, a test for HCV RNA (test code 09297) is suggested. For additional information please refer to http://education.Fantoo/faq/UAL21m8 (This link is being provided for informational/ educational purposes only.) 09/01/2022 10:0 2 AM EDT 09/01/2022 10:03 AM EDT us Mary Beth Cevallos MD LAB BLOOD ORDERABLES Final Re sult [facility] [address], [place] [address] [employer] [place] [facility] [address] [place] [address] from Last 3 Months or Most Recently Relevant to Health Maintenance Insurance [facility] Address: [facility] [address] [place] [address] DENTAL - [facility] [place] [id number] 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
--- OUTSIDE RECORDS SUMMARY | 2024-12-20 11:15 | XMS_ITS | Encounter Summary ---
Author Organization [employer] Address [address] [place] [address] 7t [place] [address] Care Team Providers Care Sql Server Dba Name Role Phone Ben Colby MD Primary Care Prov ider Michelle Burgess CNP Primary Care Provider [phone] Reason for Visit * Reason Onset Date Comments Appointment Request 01/06/2023 Encounter Details Date Type Department Care Team ([facility] st Contact Info) Description 01/06/2023 Telephone [facility] MED & PEDS [address] [place], [place] [phone] Ben Colby MD [address] [place], [place] [phone] Appointment Request Social History Tobacco Use Types Packs/Day Years Used Date Smoking Tobacco: Never Smokeless Tobacco: Never Depression Answer Date Recorded Patient Health Questionnaire-9 Score 6 06/10/2022 Housing Stability Answer Date Recorded What is your housing situation today? I have iggy lee 01/06/[address] you li ve. Do you have problems with any of the following? None of the above 01/06/2023 Food Insecurity Answer Date Recorded Within the past 12 months, y ou worried that your food would run out before you got money to buy more: Never True 01/06/2023 Within the past 12 months,th e food you bought just didn't last and you didn't have enough money to get more: Never True Transportation Answer Date Recorded In the past 12 months, has l ack of transportation kept you from medical appts, meetings, work or from getting things needed for daily living? No 01/06/2023 Utilities Answer Date Recorded In the past 12 months, has t he electric, gas, oil or water company threatened to shut off services in your home? No 01/06/2023 Depression Answer Date Recorded Patient Health Questionnaire-2 Score 1 06/10/2022 Comments No Sex and Gender Information Value Date Recorded Sex Assigned at Female 01/20/2022 10:31 AM EDT Legal Sex Female 10:31 AM EDT Gender Identity Female 01/20/2022 10:31 AM EDT Sexual Orientation Straight 01/20/2022 10 :31 AM EDT documented as of this encounter Miscellaneous Notes * Telephone Encounter - Emily Harry - 01/06/2023 1:39 PM EDT Tc from pt requesting an appointment to get tb test done for work. Please contact pt for scheduling at [phone] documented in this encounter Plan of Treatment Upcoming Encounters Date Type Department Care Team (Late st Contact Info) Description 01/19/2025 2:30 PM EDT Office Visit [facility] MED & PEDS [address] [place] [address] Michelle Burgess CNP [address] [place] [address] 03/01/2025 8:00 AM EST Office Visit [facility] [address] [place], [place] [phone] Vania Ruiz [address] [place], [place] [phone] documented as of this encounter Visit Diagnoses Not on filedocumented in this encounter Additional Health Concerns Assessment Noted Time PHQ-9 Depression Total Score: 6 06/11/19 23 4:39 PM EDT documented as of this encounter Care Teams Sql Server Dba Relationship Specialty Start Date End Date Ben Colby MD [address] [place] [address] PCP - General Internal Medicine 08/16/19 12/19/24 Michelle Burgess CNP [address] [place] [phone] PCP - General Family Medicine 12/20/24 documented as of this encounter
[2024-12-20 14:14] LABS: MANUAL DIFF FLAG NO
[2024-12-20 14:17] LABS: Hematocrit 43.9 % (37.0-47.0); Hemoglobin 14.2 g/dl (12.0-16.0); Imm Gran Abs Auto 0.02 X10*3/uL (0.00-0.03); Imm Gran Pct Auto 0.3 % (0.0-0.4); Lymphocytes Absolute Auto 2.7 X10*3/uL (1.2-4.9); Mean Corpuscular HGB Conc 32.3 g/dl (31.0-35.0); Mean Corpuscular Hemoglobin 26.6 pg (27.0-33.0); Mean Corpuscular Volume 82.4 fL (80.0-98.0); NRBC Abs Auto 0.000 X10*3/uL (0.0-0.012); NRBC Pct Auto 0.0 /100WBC (0.0-0.2); Platelet Count 311 X10*3/uL (160-400); Red Blood Count 5.33 X10*6/uL (4.20-5.50); White Blood Count 7.6 X10*3/uL (4.8-10.8)
[2024-12-20 15:25] LABS: Anion Gap 11 (12-20); Blood Urea Nitrogen 13 mg/dL (9-16); Calcium 9.5 mg/dL (8.4-10.2); Carbon Dioxide 25 mmol/L (22-29); Chloride 107 mmol/L (96-108); Cholesterol 149 mg/dL (<200); Estimated Glomerular Filt Rate > 60; Ferritin 43 ng/mL (10-122); Iron 78 mcg/dL (30-160); Percent Iron Saturation 24 % (15-50); Potassium 3.9 mmol/L (3.3-5.1); Sodium 139 mmol/L (135-145); Total Iron Binding Capacity 331 mcg/dL (228-428); Triglycerides 95 mg/dL (<150); Unsaturated Iron Binding 253 ug/dL
[2024-12-20 15:31] LABS: HDL Cholesterol 51 mg/dL (>40)
== END 2024-12-20 10:11 | disposition home or self-care (01) ==
LOC: HO.CHCLDS 10:10
DX: Z00.00 Encounter for general adult medical examination without abnormal findings (principal); Z13.6 Encounter for screening for cardiovascular disorders; Z13.29 Encounter for screening for other suspected endocrine disorder; Z13.0 Encounter for screening for diseases of the blood and blood-forming organs and certain disorders involving the immune mechanism; Z13.21 Encounter for screening for nutritional disorder
CPT/HCPCS: 36415; 80048; 80061; 82306; 82728; 83540; 84443; 85025